=== PATIENT | female | born 1975 | race Caucasian/White ===

== ENCOUNTER → 2017-12-31 | Outpatient (CLI) | payer OTHER, MEDICAID ==
[~2017-12-31] MED LIST: ATIVAN1 MG PO
--- NOTE | 2017-12-31 16:13 | 2DMMODE ---
[place] [address] 2 D/M-MODE ECHOCARDIOGRAM Name: MAYO CAMPBELL Room: [facility]#: [id number] Admission: 12/31/17 Attend Phys: Hadley Condon, Discharge: Date of : 75 Date of Service: 12/31/17 1613 Report #: [id number] THIS REPORT FOR: //name// APPROVED REPORT Study performed: 12/31/2017 14:00:59 EXAM: Comprehensive 2D, Doppler, and color-flow Echocardiogram Patient Location: Out-Patient Status: routine BSA: 2.17 HR: 115 bpm BP: 120/80 mmHg Other Information Study Quality: Fair Indications CAD Cardiomyopathy 2D Dimensions IVSd: 12.50 (7-11mm) LVOT Diam: 20.18 (18-24mm) LVDd: 38.70 mm PWd: 11.68 (7-11mm) Ascending Ao: 27.78 (22-36mm) LVDs: 33.27 (25-40mm) Aortic Root: 25.85 mm Volumes Left Atrial Volume (Systole) LA ESV Index: 10.50 mL/m2 Aortic Valve AoV Peak Clayton.: 1.16 m/s AO Peak Gr.: 5.39 mmHg LVOT Max P.64 mmHg AO Mean Gr.: 3.34 mmHg LVOT Mean P.01 mmHg LVOT Max V: 0.95 m/s AO V2 VTI: 17.85 cm LVOT Mean V: 0.66 m/s MORRIS (VTI): 2.51 cm2 LVOT V1 VTI: 14.00 cm Mitral Valve E/A Ratio: 0.81 MV Decel. Time: 103.60 ms MV E Max Clayton.: 0.68 m/[place] [address] 2 D/M-MODE ECHOCARDIOGRAM Name: MAYO CAMPBELL Room: [facility]#: [id number] Admission: 12/31/17 Attend Phys: Hadley Condon, Discharge: Date of : 75 Date of Service: 12/31/17 1613 Report #: [id number] MV PHT: 30.04 ms MVA (PHT): 7.32 cm2 TDI E/Lateral E': 6.18 E/Medial E': 6.80 Medial E' Clayton.: 0.10 m/s Lateral E' Clayton.: 0.11 m/s Pulmonary Valve PV Peak Clayton.: 0.94 m/s PV Peak Gr.: 3.57 mmHg Tricuspid Valve RAP Estimate: 5.00 mmHg TR Peak Gr.: 22.03 mmHg RVSP: 27.03 mmHg PA Pressure: 27.03 mmHg Left Ventricle The left ventricle is normal size. moderate hypokinesis noted of the inferior base Mild concentric left ventricular hypertrophy. Left ventricular systolic function is mildly decreased. LVEF is 40-45%. The left ventricular diastolic function is normal. Right Ventricle The right ventricle is normal size. The right ventricular systolic function is normal. Atria The left atrium size is normal. The right atrium size is normal. Aortic Valve The aortic valve is normal in structure. No aortic regurgitation is present. There is no aortic valvular stenosis. Mitral Valve The mitral valve is normal in structure. There is no mitral valve regurgitation noted. No evidence of mitral valve stenosis. Tricuspid Valve The tricuspid valve is normal in structure. Mild tricuspid regurgitation. Pulmonic Valve Pulmonic valve is not well visualized. There is no pulmon[place] [address] 2 D/M-MODE ECHOCARDIOGRAM Name: MAYO CAMPBELL Room: [facility]#: [id number] Admission: 12/31/17 Attend Phys: Hadley Condon, Discharge: Date of : 75 Date of Service: 12/31/17 1613 Report #: [id number] Great Vessels The aortic root is normal in size. IVC is normal in size and collapses with >50% inspiration Pericardium There is no pericardial effusion. <Conclusion> LVEF is 40-45%. moderate hypokinesis noted of the inferior base Mild concentric left ventricular hypertrophy. <ELECTRONICALLY SIGNED> By: Efrain Syed MD, [facility] 12/31/17 1613 12 12 Efrain Syed MD, FAC /INF
== END ==
LOC: M.CRD 13:47
DX: I07.1 Rheumatic tricuspid insufficiency (principal); I25.10 Atherosclerotic heart disease of native coronary artery without angina pectoris; I42.9 Cardiomyopathy, unspecified; Z95.1 Presence of aortocoronary bypass graft

== ENCOUNTER 2018-07-21 15:07 | Emergency (ER) | payer OTHER, MEDICAID ==
[~2018-07-21] VITALS: Ht 170.2 cm; Wt 93.4 kg
[2018-07-21] MEDS ORDERED: LISINOPRIL20 MG PO (15:39)
[2018-07-21] MEDS ORDERED: OMEPRAZOLE20 M1 PO (15:39)
[2018-07-21] MEDS ORDERED: ATORVASTATIN CA40 MG PO (15:39)
[2018-07-21] MEDS ORDERED: COREG25 M1 PO (15:40)
[2018-07-21] MEDS ORDERED: FLOVENT HFA 4444 MCG INH (15:40)
[2018-07-21] MEDS ORDERED: MAXZIDE-25 MG1 EACH PO (15:40)
[2018-07-21] MEDS ORDERED: BAYER CHEWABLE81 MG PO (15:40)
[2018-07-21] MEDS ORDERED: NITRO-TIME2.5 MG PO (15:41)
[2018-07-21] MEDS ORDERED: IBUPROFEN 800800 M1 PO (15:44)
[2018-07-21] MEDS ORDERED: BACTRIM DS TAB1 EACH PO (15:44)
[2018-07-21] MEDS ORDERED: NORCO 5-325 TA1 EACH PO (15:44)
[2018-07-21] MEDS ORDERED: KEFLEX500 M1 PO (15:44)
[2018-07-21 16:07] VITALS: BP 122/67
== END 2018-07-21 16:07 | disposition home or self-care (01) ==
LOC: M.ERS 15:07
DX: S91.331A Puncture wound without foreign body, right foot, initial encounter (principal); W26.8XXA Contact with other sharp object(s), not elsewhere classified, initial encounter; Y93.89 Activity, other specified; Y92.89 Other specified places as the place of occurrence of the external cause; Y99.8 Other external cause status

== ENCOUNTER → 2018-12-08 | Outpatient (CLI) | payer OTHER, MEDICAID ==
[~2018-12-08] MED LIST changes: +ATORVASTATIN CA40 MG PO; +BACTRIM DS TAB1 EACH PO; +BAYER CHEWABLE81 MG PO; +COREG25 M1 PO; +FLOVENT HFA 4444 MCG INH; +IBUPROFEN 800800 M1 PO; +KEFLEX500 M1 PO; +LISINOPRIL20 MG PO; +MAXZIDE-25 MG1 EACH PO; +NITRO-TIME2.5 MG PO; +NORCO 5-325 TA1 EACH PO; +OMEPRAZOLE20 M1 PO
[2018-12-08 12:08] LABS: ABSOLUTE EOSINOPHILS 0.1 thou/uL (0.0-0.7); ABSOLUTE LYMPHOCYTES 1.3 thou/uL (0.8-5.3); ABSOLUTE MONOCYTES 0.4 thou/uL (0.0-1.2); ABSOLUTE NEUTROPHILS 4.5 thou/uL (1.6-8.1); BASOPHILS 0.6 %; EOSINOPHILS 1.4 %; HEMATOCRIT 32.9 % (37.0-47.0); HEMOGLOBIN 11.5 gm/dL (12.0-15.0); MCH 31.9 pg (26.0-34.0); MCV 90.9 fL (80.0-100.0); MONOCYTES 7.1 %; MPV 7.1 fl. (7.2-11.1); NUCLEATED RBCS 0 /100WBC; PLATELET COUNT* 365 thou/uL (150-400); POLYS 70.9 %; RBC 3.62 mil/uL (4.20-5.00); RDW-CV 12.6 % (10.5-14.5); WBC 6.3 thou/uL (4.0-11.0)
[2018-12-08 12:15] LABS: ANION GAP 7 mmol/L (7-16); BUN 15 mg/dL (7-18); CALCIUM 8.8 mg/dL (8.5-10.1); CHLORIDE 103 mmol/L (98-107); CO2 28 mmol/L (21-32); CREATININE 1.5 mg/dL (0.6-1.3); GLUCOSE 122 mg/dL (70-99); POTASSIUM 3.8 mmol/L (3.5-5.1); SODIUM 138 mmol/L (136-145)
[2018-12-08 12:25] LABS: ALBUMIN 3.3 g/dL (3.4-5.0); ALKALINE PHOSPHATASE 119 U/L (46-116); CHOLESTEROL 83 mg/dL (<200); HDL CHOLESTEROL 35 mg/dL (>40); LDL CHOLESTEROL 37 mg/dL (<100); NT-PRO BRAIN NAT PEPTIDE 173 pg/mL (<300); SGOT 16 U/L (15-37); SGPT 29 U/L (30-65); TC:HDL 2.4 Ratio (Not establshd); TOTAL BILIRUBIN 0.5 mg/dL (<0.1-1.0); TRIGLYCERIDE 57 mg/dL (<150); VLDL 11 mg/dL (<40)
[2018-12-08 12:26] LABS: SERUM ASSESSMENT Clear
== END ==
LOC: M.LAB 11:35
PROVIDERS: Nurse Practitioner
DX: I25.10 Atherosclerotic heart disease of native coronary artery without angina pectoris (principal); I25.5 Ischemic cardiomyopathy; I11.0 Hypertensive heart disease with heart failure; I50.22 Chronic systolic (congestive) heart failure; E78.2 Mixed hyperlipidemia

== ENCOUNTER → 2018-12-28 | Outpatient (CLI) | payer OTHER, MEDICAID ==
--- NOTE | 2018-12-28 10:52 | 2DMMODE ---
[place] [address] 2 D/M-MODE ECHOCARDIOGRAM Name: MAYO CAMPBELL Room: [facility]#: [id number] Admission: 12/28/18 Attend Phys: Yasmine Rosenberg, Discharge: Date of : 75 Date of Service: 12/28/18 1052 Report #: [id number] THIS REPORT FOR: //name// APPROVED REPORT Study performed: 12/28/2018 09:36:37 EXAM: Comprehensive 2D, Doppler, and color-flow Echocardiogram Patient Location: Out-Patient BSA: 2.24 HR: 80 bpm BP: 120/80 mmHg Other Information Study Quality: Fair Indications Congestive Heart Failure Dyspnea CAD Cardiomyopathy 2D Dimensions IVSd: 11.23 (7-11mm) LVOT Diam: 20.14 (18-24mm) LVDd: 44.52 mm PWd: 9.49 (7-11mm) Ascending Ao: 26.04 (22-36mm) LVDs: 32.89 (25-40mm) Aortic Root: 24.00 mm Volumes Left Atrial Volume (Systole) LA ESV Index: 14.30 mL/m2 Aortic Valve AoV Peak Clayton.: 1.45 m/s AO Peak Gr.: 8.46 mmHg LVOT Max P.72 mmHg AO Mean Gr.: 4.77 mmHg LVOT Mean P.01 mmHg LVOT Max V: 0.96 m/s AO V2 VTI: 31.07 cm LVOT Mean V: 0.66 m/s MORRIS (VTI): 2.00 cm2 LVOT V1 VTI: 19.50 cm Mitral Valve E/A Ratio: 1.06 MV Decel. Time: 246.56 [place] [address] 2 D/M-MODE ECHOCARDIOGRAM Name: MAYO CAMPBELL Room: [facility]#: [id number] Admission: 12/28/18 Attend Phys: Yasimne Rosenberg, Discharge: Date of : 75 Date of Service: 12/28/18 1052 Report #: [id number] MV E Max Clayton.: 0.64 m/s MV PHT: 71.50 ms MVA (PHT): 3.08 cm2 TDI E/Lateral E': 4.27 E/Medial E': 5.33 Medial E' Clayton.: 0.12 m/s Lateral E' Clayton.: 0.15 m/s Pulmonary Valve PV Peak Clayton.: 0.98 m/s PV Peak Gr.: 3.85 mmHg Left Ventricle The left ventricle is normal size. There is septal and anterior hypokinesis. There is normal left ventricular wall thickness. Left ventricular systolic function is mildly decreased. LVEF is 45-50%. The left ventricular diastolic function is normal. Right Ventricle The right ventricle is normal size. The right ventricular systolic function is normal. Atria The left atrium size is normal. The right atrium size is normal. Aortic Valve The aortic valve is normal in structure. No aortic regurgitation is present. There is no aortic valvular stenosis. Mitral Valve The mitral valve is normal in structure. There is no mitral valve regurgitation noted. No evidence of mitral valve stenosis. Tricuspid Valve The tricuspid valve is normal in structure. There is no tricuspid valve regurgitation noted. Pulmonic Valve The pulmonary valve is normal in structure. Mild pulmonic regurgitation. Great Vessels The aortic root is normal in size. IVC is normal in size and collapses >50% [place] [address] 2 D/M-MODE ECHOCARDIOGRAM Name: AMYO CAMPBELL Room: [facility]#: [id number] Admission: 12/28/18 Attend Phys: Yasmine Rosenberg, Discharge: Date of : 75 Date of Service: 12/28/18 1052 Report #: [id number] Pericardium There is no pericardial effusion. <Conclusion> The left ventricle is normal size. There is normal left ventricular wall thickness. Left ventricular systolic function is mildly decreased. LVEF is 45-50%. The left ventricular diastolic function is normal. The right ventricle is normal size. The aortic valve is normal in structure. The mitral valve is normal in structure. The tricuspid valve is normal in structure. IVC is normal in size and collapses >50% with inspiration. There is no pericardial effusion. There is septal and anterior hypokinesis. <ELECTRONICALLY SIGNED> By: Osorio Gonzalez MD, [facility] 12/28/18 1052 1052 [id number] Osorio Gonzalez MD, FACC /INF
== END ==
LOC: M.CRD 09:18
DX: I37.1 Nonrheumatic pulmonary valve insufficiency (principal); I25.10 Atherosclerotic heart disease of native coronary artery without angina pectoris; I25.5 Ischemic cardiomyopathy; I50.22 Chronic systolic (congestive) heart failure; I11.0 Hypertensive heart disease with heart failure

== ENCOUNTER 2019-02-18 20:54 | Emergency (ER) | payer OTHER, MEDICAID ==
[~2019-02-18] VITALS: Ht 170.2 cm; Wt 90.7 kg
[2019-02-18] MEDS ORDERED: TRAMADOL 50 MG50 MG PO (21:05)
[2019-02-18] MEDS ORDERED: AMOXICILLIN 50500 MG PO (21:05)
[2019-02-18 21:15] VITALS: BP 128/87
== END 2019-02-18 21:16 | disposition home or self-care (01) ==
LOC: M.ERS 20:54
DX: K02.9 Dental caries, unspecified (principal)

== ENCOUNTER 2019-07-06 23:51 | Emergency (ER) | payer MEDICAID ==
[~2019-07-06] VITALS: Ht 170.2 cm; Wt 90.7 kg
[~2019-07-06 23:51] MED LIST changes: +AMOXICILLIN 50500 MG PO; +TRAMADOL 50 MG50 MG PO
[2019-07-07] MEDS ORDERED: ABILIFY 5 MG TAB5 MG PO (00:09)
[2019-07-07] MEDS ORDERED: LISINOPRIL2.5 MG PO (00:10)
[2019-07-07] MEDS ORDERED: TRIAMTERENE/HCT1 CA1 PO (00:11)
[2019-07-07] MEDS ORDERED: MOBIC7.5 MG PO (00:11)
[2019-07-07] MEDS ORDERED: CELEXA 20 MG TA20 MG PO (00:11)
[2019-07-07] MEDS ORDERED: CLEOCIN HCL150 M1 PO (00:21)
[2019-07-07] MEDS ORDERED: TRAMADOL 50 MG50 MG PO (00:21)
[2019-07-07 00:27] VITALS: BP 159/87
== END 2019-07-07 00:27 | disposition home or self-care (01) ==
LOC: M.ERS 23:51
DX: K04.7 Periapical abscess without sinus (principal)

== ENCOUNTER 2020-09-14 04:18 | Emergency (ER) | payer MEDICAID ==
[~2020-09-14] VITALS: Ht 170.2 cm; Wt 108.9 kg
[~2020-09-14 04:18] MED LIST changes: +ABILIFY 5 MG TAB5 MG PO; +CELEXA 20 MG TA20 MG PO; +CLEOCIN HCL150 M1 PO; +LISINOPRIL2.5 MG PO; +MOBIC7.5 MG PO; +TRIAMTERENE/HCT1 CA1 PO
[2020-09-14] MEDS ORDERED: LAMOTRIGINE250 MG PO (04:35)
[2020-09-14] MEDS ORDERED: ALPRAZOLAM XR3 MG PO (04:36)
[2020-09-14] MEDS ORDERED: FLOVENT HFA12 G1 INH (04:36)
[2020-09-14] MEDS ORDERED: LASIX 40 MG TAB40 MG PO (04:36)
[2020-09-14] MEDS ORDERED: CARVEDILOL12.5 MG PO (04:37)
[2020-09-14 05:12] LABS: URINE BILIRUBIN NEGATIVE (Negative); URINE BLOOD NEGATIVE (Negative); URINE CLARITY CLEAR; URINE COLOR YELLOW; URINE GLUCOSE-RANDOM NEGATIVE (Negative); URINE KETONES NEGATIVE (Negative); URINE LEUKOCYTES-REFLEX NEGATIVE (Negative); URINE NITRITE-REFLEX NEGATIVE (Negative); URINE PROTEIN NEGATIVE (Negative); URINE UROBILINOGEN 0.2 E.U./dl (0.2-1.0)
[2020-09-14 05:14] LABS: HEMATOCRIT 36.2 % (37.0-47.0); HEMOGLOBIN 12.3 gm/dL (12.0-15.0); MCH 30.7 pg (26.0-34.0); MCV 90.3 fL (80.0-100.0); MPV 6.8 fl. (7.2-11.1); RBC 4.01 mil/uL (4.20-5.00); RDW-CV 13.3 % (10.5-14.5); WBC 9.1 thou/uL (4.0-11.0)
[2020-09-14 05:43] LABS: CALCIUM 9.1 mg/dL (8.5-10.1); CREATININE 1.4 mg/dL (0.6-1.3); POTASSIUM 3.7 mmol/L (3.5-5.1)
[2020-09-14 05:48] LABS: ALBUMIN 3.8 g/dL (3.4-5.0); TOTAL BILIRUBIN 0.1 mg/dL (<0.1-1.0); TOTAL PROTEIN 7.5 g/dL (6.4-8.2)
[2020-09-14] MEDS ORDERED: DIFLUCAN100 MG PO (05:57)
[2020-09-14] MEDS ORDERED: FLAGYL500 M1 PO (05:57)
[2020-09-14] MEDS ORDERED: LIDOCAINE VISC100 ML TOP (05:57)
[2020-09-14 06:07] VITALS: BP 121/70
[2020-09-17 22:06] LABS: HSV 1 DNA Negative (Negative); HSV 2 DNA Negative (Negative)
== END 2020-09-14 06:07 | disposition home or self-care (01) ==
LOC: M.ERS 04:18
PROVIDERS: Personal Emergency Response Attendant
DX: B37.3 Candidiasis of vulva and vagina (principal); Z11.3 Encounter for screening for infections with a predominantly sexual mode of transmission; I10 Essential (primary) hypertension; Z79.899 Other long term (current) drug therapy; Z79.82 Long term (current) use of aspirin

== ENCOUNTER 2020-10-06 02:32 | Emergency (ER) | payer MEDICAID ==
[~2020-10-06] VITALS: Ht 170.2 cm; Wt 99.8 kg
[~2020-10-06 02:32] MED LIST changes: +ALPRAZOLAM XR3 MG PO; +CARVEDILOL12.5 MG PO; +DIFLUCAN100 MG PO; +FLAGYL500 M1 PO; +FLOVENT HFA12 G1 INH; +LAMOTRIGINE250 MG PO; +LASIX 40 MG TAB40 MG PO; +LIDOCAINE VISC100 ML TOP
[2020-10-06 04:30] LABS: ABSOLUTE EOSINOPHILS 0.2 thou/uL (0.0-0.7); ABSOLUTE MONOCYTES 0.4 thou/uL (0.0-1.2); BASOPHILS 0.7 %; EOSINOPHILS 2.9 %; HEMATOCRIT 33.5 % (37.0-47.0); HEMOGLOBIN 11.6 gm/dL (12.0-15.0); LYMPHOCYTES 30.3 %; MCH 31.5 pg (26.0-34.0); MCHC 34.6 g/dL (28.0-37.0); MCV 90.9 fL (80.0-100.0); MONOCYTES 6.1 %; MPV 7.6 fl. (7.2-11.1); NUCLEATED RBCS 0 /100WBC; PLATELET COUNT* 349 thou/uL (150-400); RBC 3.69 mil/uL (4.20-5.00); RDW-CV 13.8 % (10.5-14.5); WBC 6.7 thou/uL (4.0-11.0)
[2020-10-06 04:37] LABS: URINE BILIRUBIN NEGATIVE (Negative); URINE BLOOD NEGATIVE (Negative); URINE CLARITY CLEAR; URINE COLOR YELLOW; URINE GLUCOSE-RANDOM NEGATIVE (Negative); URINE KETONES NEGATIVE (Negative); URINE LEUKOCYTES-REFLEX NEGATIVE (Negative); URINE NITRITE-REFLEX NEGATIVE (Negative); URINE PROTEIN NEGATIVE (Negative); URINE SPECIFIC GRAVITY >= 1.030 (1.005-1.030); URINE UROBILINOGEN 0.2 E.U./dl (0.2-1.0)
[2020-10-06 04:44] LABS: AMP/METHAMP POSITIVE (Negative); BARBITURATES Negative (Negative); BENZODIAZEPINES Negative (Negative); COCAINE Negative (Negative); METHADONE Negative (Negative); OPIATES POSITIVE (Negative); PCP Negative (Negative); THC Negative (Negative)
[2020-10-06 04:44] LABS: CALCIUM 8.7 mg/dL (8.5-10.1); CREATININE 1.1 mg/dL (0.6-1.3); POTASSIUM 3.8 mmol/L (3.5-5.1)
[2020-10-06 04:49] LABS: ALBUMIN 3.8 g/dL (3.4-5.0); TOTAL BILIRUBIN 0.3 mg/dL (<0.1-1.0); TOTAL PROTEIN 7.3 g/dL (6.4-8.2)
[2020-10-06] MEDS ORDERED: DOXYCYCLINE 10100 MG PO (05:00)
[2020-10-06 05:08] VITALS: BP 148/80
[2020-10-09 19:07] LABS: HIV-1/HIV-2 ANTIBODY Non Reactive (Non Reactive)
== END 2020-10-06 05:08 | disposition home or self-care (01) ==
LOC: M.ERS 02:32
PROVIDERS: Emergency Medicine
DX: A53.9 Syphilis, unspecified (principal); I10 Essential (primary) hypertension; Z79.899 Other long term (current) drug therapy